=== PATIENT | female | born 1940 | race Caucasian/White ===

== ENCOUNTER 2020-11-27 06:25 | Day surgery (SDC) | payer MEDICARE, BC, OTHER, SELFPAY ==
[2020-11-21 08:46] VITALS: BMI 37.8
--- NOTE | 2020-11-22 14:46 | MHC.SHP ---
Pre-Procedural Eval Section A The patient is an INPATIENT: No The History & Physical has been completed within 30 days and I have reviewed it.: Yes Section B Chief Complaint: cataract Allergies: Allergies Allergy/AdvReac Type Severity Reaction Status Date / Time Latex, Natural Rubber Allergy Intermediate RASH Unverified 02/24/20 15:14 [LATEX, NATURAL RUBBER] Plan Diagnosis/Plan: Unchanged I have reviewed the history and physical and performed a pertinent physical examination on my patient. No changes have occurred unless specified.
--- NOTE | 2020-11-24 09:30 | HO.ANESPROP2 ---
Documented by User: Fanny Fountainney 11/24/20 09:31 HPI - Anesthesia Eval Consult details Narrative: 80yo F for Left Cataract Extraction IOL Insertion PCP cleared No prev cataract on record PMFSH Past Medical History Medical History (Updated 11/21/20 @ 08:51 by Sheela Stahl) Arthritis Cancer COVID-19 vaccine administered Depression HTN (hypertension) Hx of Crohn's disease Surgical History Surgical History (Updated 11/21/20 @ 08:51 by Sheela Stahl) H/O colonoscopy Hx of appendectomy Hx of hysterectomy Hx of lumbar discectomy Social History Social History (Updated 11/21/20 @ 08:52 by Sheela Stahl) Are you a primary ocular care technician to a significant other at home: No Do you presently have visiting nurse or other home services: No Patient Tobacco Use Status: Never used Tobacco Use of substances other than those prescribed or required for medical reasons: No Have you been hit, kicked, punched, or otherwise hurt by someone within the past year? If so, by whom?: No Are you DNR?: No Advance Directives Information Provided: No Advance Directives on File: No Recently lost weight without trying: No Eating poorly because of decreased appetite: No Nutrition Risks: Surgical patient >75years Poor oral hygiene: No Meds Allergies Allergy/AdvReac Type Severity Reaction Status Date / Time Latex, Natural Rubber Allergy Intermediate RASH Verified 11/27/20 07:01 [LATEX, NATURAL RUBBER] Home Medications Medication Instructions Recorded Confirmed Last Taken Type citalopram 10 mg PO DAILY 11/21/20 11/21/20 Unknown History hydrochlorothiazide 50 mg PO DAILY 11/21/20 11/21/20 Unknown History multivitamin 1 tab PO DAILY 11/21/20 11/21/20 Unknown History vit C,H-In-ybafl-lutein-zeaxan 1 tab PO BID 11/21/20 11/21/20 Unknown History [PreserVision AREDS-2] Exam Exam Date and Time: November 24, 2020 0930 Height,Weight and Vital Signs: Height 5 ft 1 in Weight 90.718 kg Assessment and Plan Assessment Anesthesia Assessment: Chart Reviewed Documented by User: Jordana Iglesias 11/27/20 07:49 PMFSH Past Medical History Medical History (Updated 11/21/20 @ 08:51 by Sheela Stahl) Arthritis Cancer COVID-19 vaccine administered Depression HTN (hypertension) Hx of Crohn's disease Surgical History Surgical History (Updated 11/21/20 @ 08:51 by Sheela Stahl) H/O colonoscopy Hx of appendectomy Hx of hysterectomy Hx of lumbar discectomy Social History Social History (Updated 11/21/20 @ 08:52 by Sheela Stahl) Are you a primary ocular care technician to a significant other at home: No Do you presently have visiting nurse or other home services: No Patient Tobacco Use Status: Never used Tobacco Use of substances other than those prescribed or required for medical reasons: No Have you been hit, kicked, punched, or otherwise hurt by someone within the past year? If so, by whom?: No Are you DNR?: No Advance Directives Information Provided: No Advance Directives on File: No Recently lost weight without trying: No Eating poorly because of decreased appetite: No Nutrition Risks: Surgical patient >75years Poor oral hygiene: No Meds Allergies Allergy/AdvReac Type Severity Reaction Status Date / Time Latex, Natural Rubber Allergy Intermediate RASH Verified 11/27/20 07:01 [LATEX, NATURAL RUBBER] Home Medications Medication Instructions Recorded Confirmed Last Taken Type citalopram 10 mg PO DAILY 11/21/20 11/21/20 Unknown History hydrochlorothiazide 50 mg PO DAILY 11/21/20 11/21/20 Unknown History multivitamin 1 tab PO DAILY 11/21/20 11/21/20 Unknown History vit C,M-Is-jqfpv-lutein-zeaxan 1 tab PO BID 11/21/20 11/21/20 Unknown History [PreserVision AREDS-2] Exam Airway Mallampati Class: II TM Dist: >3cm Neck ROM: Full Heart: rrr Lungs: cta Assessment and Plan Assessment Anesthesia Assessment: Anesthesia Plan Discussed and Chart Reviewed Final Anesthetic Review NPO: Yes ASA Class: II Final Preanesthetic Review: No Changes in Pt Med Stat and Consent Obtained/Reviewed Patient Risk: Intermediate Procedure Risk: Intermediate Anesthetic Plan Anesthetic Plan: MAC: Disposition: Standard PACU
[2020-11-27 06:41] VITALS: BP 132/64; PULSE 78; RESP 18; TEMP 36.9; O2SAT 95
[2020-11-27] MEDS: Tetracaine HCl/PF 0.5% Oph Sol 4 ML DROPS 1 DROP EYE-LEFT (06:50)
[2020-11-27] MEDS: Tropicamide 1 % Ophth Sol 3 ML BTL 1 DROP EYE-LEFT ×3 (06:55→07:07)
[2020-11-27] MEDS: Lactated Ringers 500 ML 50 ML IV (07:01)
[2020-11-27] MEDS: Phenylephrine HCL 2.5% Oph SoL 2 ML BOTTLE 1 DROP EYE-LEFT ×3 (07:03→07:08)
--- NOTE | 2020-11-27 08:52 | HO.PNOPHT ---
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 ANESTHESIA: Topical/MAC ESTIMATED BLOOD LOSS: None COMPLICATIONS: None After obtaining informed consent, the patient was brought to the operating room suite and placed in the supine position. After adequate sedation per anesthesia, topical drops of Tetracaine were given to the left eye. The eye was then prepped and draped in the usual sterile fashion. The operating room microscope was then positioned over the left eye and a lid speculum placed. 2% Lidocaine was instilled subconjunctivally. After awaiting 30 seconds, a paracentesis was created superiorly. Hemostasis was then achieved using wet field cautery. Mitomycin .4mg/ml was then placed in the conjunctival pocket and held in place for two minutes. The subconjunctival pocket was then irrigated copiously with 20 mls of BSS. Paracentesis was then created. Viscoelastic was then instilled into the anterior chamber. A crescent blade was then utilized to create a partial thickness sclera wound followed by advancement to clear cornea with the crescent blade. A keratome was then utilized to enter the anterior chamber. Capsulotomy forceps were then utilized to create a continuous circular tear capsulotomy. Hydrodissection and hydrodelineation were carried out until adequate mobilization of the nucleus occurred. Phacoemulsification was utilized to remove the dense central nucleus followed by removal of remnant cortical material utilizing the automated aspiration irrigation unit. Viscoelastic was then instilled into the posterior capsular bag followed by placement of a posterior chamber intraocular lens. Attention was then directed to create a trabeculectomy. A Candida punch was then utilized to create the trabeculectomy. The residual Viscoelastic was then removed utilizing the automated IA machine. The egress of aqueous was evaluated and found to be appropriate. The conjunctiva was then closed with a 9-0 vicryl suture. BSS was then instilled into the anterior chamber creating a superior bleb, without obvious leakage. Intracameral injection of Vigamox 0.3%, 0.1 ml and subtenon injection of Kenalog-40 0.2 ml was given followed by an atropine drop. The patient tolerated the procedure well and will be followed up in the a.m.
--- NOTE | 2020-11-27 08:52 | HO.PNOPHT ---
Ophthalmology Procedure Procedure Date of Service: 11/27/20 Ophthalmology Viscoelastic: Healon Duet Dual Pack Pro Ophthalmology Lenses: TECVALERIA [id number] (17) Procedure Notes: PREOPERATIVE DIAGNOSIS: Decreased visual acuity left eye secondary to cataract POSTOPERATIVE DIAGNOSIS: Same PROCEDURE: Left cataract extraction with intraocular lens insertion SURGEON: Wing Laguerre M.D. ANESTHESIA: Topical/MAC ESTIMATED BLOOD LOSS: None COMPLICATIONS: None After obtaining informed consent, the patient was brought to the operation room suite and placed in the supine position. After adequate sedation per anesthesia, topical drops of Tetracaine were given to the left eye. The eye was then prepped and draped in the usual sterile fashion. The operating room microscope was then positioned over the operative eye and a lid speculum placed. A paracentesis was created. Viscoelastic was then instilled into the anterior chamber. A three plane incision was then created temporally, utilizing a 2.85 mm keratome. Capsulotomy forceps were then utilized to create a circular tear capsulotomy. Hydrodissection and hydrodelineation were carried out until adequate mobilization of the nucleus occurred. Phacoemulsification was then utilized to remove the dense central nucleus followed by removal of the cortical material utilizing the automated aspiration irrigation unit. Viscoat elastic was instilled into the posterior capsular bag followed by placement of a posterior chamber intraocular lens without difficulty. The residual Viscoat elastic was then removed utilizing the automated IA machine. The wound was check and found to be watertight. The patient tolerated the procedure well and the lid speculum was removed. Intracameral injection of Vigamox 0.1 mL followed by a subtenon injection of Kenalog-40 0.2 mL were administered. The patient will be seen in the a.m.
[2020-11-27 09:27] VITALS: BP 146/67; PULSE 77; RESP 17; TEMP 36.6; O2SAT 97
== END 2020-11-27 09:50 ==
LOC: HO.SSS 06:26
PROVIDERS: PCP Family Medicine; Visit Provider Ophthalmology
PROC: (CPT 66985; principal; 2020-11-27 08:50)
DX: H25.12 Age-related nuclear cataract, left eye (principal); H35.3131 Nonexudative age-related macular degeneration, bilateral, early dry stage; Z83.511 Family history of glaucoma; I10 Essential (primary) hypertension; Z85.820 Personal history of malignant melanoma of skin; F32.9 Major depressive disorder, single episode, unspecified; Z79.899 Other long term (current) drug therapy; Z87.891 Personal history of nicotine dependence
CPT/HCPCS: 66984; J2250; J3010; J3300; V2632

== ENCOUNTER 2020-12-18 06:57 | Day surgery (SDC) | payer MEDICARE, OTHER, BC, SELFPAY ==
[2020-11-21 08:55] VITALS: BMI 37.8
--- NOTE | 2020-12-14 07:36 | MHC.SHP ---
Pre-Procedural Eval Section A Date of Service: 12/14/20 The patient is an INPATIENT: No The History & Physical has been completed within 30 days and I have reviewed it.: Yes Section B Chief Complaint: cataract Allergies: Allergies Allergy/AdvReac Type Severity Reaction Status Date / Time Latex, Natural Rubber Allergy Intermediate RASH Verified 11/27/20 07:01 [LATEX, NATURAL RUBBER] Plan Diagnosis/Plan: Unchanged I have reviewed the history and physical and performed a pertinent physical examination on my patient. No changes have occurred unless specified.
--- NOTE | 2020-12-15 09:46 | P.CONAN_ITS ---
Documented by User: Fanny Mathur 12/15/20 09:46 HPI - Anesthesia Eval Consult details Narrative: 80yo F for Right Cataract Extraction IOL Insertion PCP cleared Left eye 11/27: Fent 50, Midaz 1 PMFSH Past Medical History Medical History Arthritis Cancer COVID-19 vaccine administered Depression HTN (hypertension) Hx of Crohn's disease Surgical History Surgical History H/O colonoscopy Hx of appendectomy Hx of hysterectomy Hx of lumbar discectomy Social History Social History Are you a primary career technical education instructor to a significant other at home: No Do you presently have visiting nurse or other home services: No Patient Tobacco Use Status: Never used Tobacco Use of substances other than those prescribed or required for medical reasons: No Have you been hit, kicked, punched, or otherwise hurt by someone within the past year? If so, by whom?: No Are you DNR?: No Advance Directives Information Provided: No Advance Directives on File: No Recently lost weight without trying: No Eating poorly because of decreased appetite: No Nutrition Risks: Surgical patient >75years Poor oral hygiene: No Meds Allergies Allergy/AdvReac Type Severity Reaction Status Date / Time Latex, Natural Rubber Allergy Intermediate RASH Verified 11/27/20 07:01 [LATEX, NATURAL RUBBER] Home Medications Medication Instructions Recorded Confirmed Last Taken Type citalopram 10 mg PO DAILY 11/21/20 11/21/20 Unknown History hydrochlorothiazide 50 mg PO DAILY 11/21/20 11/21/20 Unknown History multivitamin 1 tab PO DAILY 11/21/20 11/21/20 Unknown History vit C,U-Pv-egaqe-lutein-zeaxan 1 tab PO BID 11/21/20 11/21/20 Unknown History [PreserVision AREDS-2] Exam Exam Date and Time: December 15, 2020 0946 Height,Weight and Vital Signs: Height 5 ft 1 in Weight 90.718 kg Assessment and Plan Assessment Anesthesia Assessment: Chart Reviewed Documented by User: Cuba Reyes 12/18/20 08:39 PMFSH Past Medical History Medical History Arthritis Cancer COVID-19 vaccine administered Depression HTN (hypertension) Hx of Crohn's disease Surgical History Surgical History H/O colonoscopy Hx of appendectomy Hx of hysterectomy Hx of lumbar discectomy Social History Social History Are you a primary career technical education instructor to a significant other at home: No Do you presently have visiting nurse or other home services: No Patient Tobacco Use Status: Never used Tobacco Use of substances other than those prescribed or required for medical reasons: No Have you been hit, kicked, punched, or otherwise hurt by someone within the past year? If so, by whom?: No Are you DNR?: No Advance Directives Information Provided: No Advance Directives on File: No Recently lost weight without trying: No Eating poorly because of decreased appetite: No Nutrition Risks: Surgical patient >75years Poor oral hygiene: No Meds Allergies Allergy/AdvReac Type Severity Reaction Status Date / Time Latex, Natural Rubber Allergy Intermediate RASH Verified 11/27/20 07:01 [LATEX, NATURAL RUBBER] Home Medications Medication Instructions Recorded Confirmed Last Taken Type citalopram 10 mg PO DAILY 11/21/20 11/21/20 Unknown History hydrochlorothiazide 50 mg PO DAILY 11/21/20 11/21/20 Unknown History multivitamin 1 tab PO DAILY 11/21/20 11/21/20 Unknown History vit C,M-Cu-hebbp-lutein-zeaxan 1 tab PO BID 11/21/20 11/21/20 Unknown History [PreserVision AREDS-2] Exam Airway Mallampati Class: III TM Dist: >3cm Neck ROM: Full Loose/Missing/Broken Teeth: No Heart: rrr+[id number] Lungs: cta b/l Assessment and Plan Assessment Anesthesia Assessment: Anesthesia Plan Discussed, PAT Visit and Chart Reviewed Final Anesthetic Review NPO: Yes ASA Class: III Final Preanesthetic Review: No Changes in Pt Med Stat, Meds/Allgs Chart Reviewed, Consent Obtained/Reviewed and Anes Risks/Benef Reviewed Patient Risk: Intermediate Procedure Risk: Low Assessment/Block/Sedation in SS: Assess/Block/Sedation-SS Anesthetic Plan Anesthetic Plan: MAC: and Agree w/ Assess. and Plan Disposition: Standard PACU
[2020-12-18 07:52] VITALS: BP 189/76; PULSE 78; RESP 18; TEMP 36.2; O2SAT 95
[2020-12-18] MEDS: Tetracaine HCl/PF 0.5% Oph Sol 4 ML DROPS 1 DROP EYE-RIGHT (08:08)
[2020-12-18] MEDS: Tropicamide 1 % Ophth Sol 3 ML BTL 1 DROP EYE-RIGHT ×3 (08:11→08:26)
[2020-12-18] MEDS: Phenylephrine HCL 2.5% Oph SoL 2 ML BOTTLE 1 DROP EYE-RIGHT ×3 (08:17→08:31)
[2020-12-18] MEDS: Lactated Ringers 500 ML 50 ML IV (08:23)
--- NOTE | 2020-12-18 09:17 | HO.PNOPHT ---
Ophthalmology Procedure Procedure Date of Service: 12/18/20 Ophthalmology Viscoelastic: Healon Duet Dual Pack Pro Ophthalmology Lenses: TECNIS [id number] (15.5) Procedure Notes: PREOPERATIVE DIAGNOSIS: Decreased visual acuity right eye secondary to cataract POSTOPERATIVE DIAGNOSIS: Same PROCEDURE: Right cataract extraction with intraocular lens insertion SURGEON: Wing Laguerre M.D. ANESTHESIA: Topical/MAC ESTIMATED BLOOD LOSS: None COMPLICATIONS: None After obtaining informed consent, the patient was brought to the operating room suite and placed in the supine position. After adequate sedation per anesthesia, topical drops of Tetracaine were given to the right eye. The eye was then prepped and draped in the usual sterile fashion. The operating room microscope was then positioned over the operative eye and a lid speculum placed. A paracentesis was created. Viscoelastic was then instilled into the anterior chamber. A three plane incision was then created temporally, utilizing a 2.85 mm keratome. Capsulotomy forceps were then utilized to create a circular tear capsulotomy. Hydrodissection and hydrodelineation were carried out until adequate mobilization of the nucleus occurred. Phacoemulsification was then utilized to remove the dense central nucleus followed by removal of the cortical material utilizing the automated aspiration irrigation unit. Viscoelastic was instilled into the posterior capsular bag followed by placement of a posterior chamber intraocular lens without difficulty. The residual Viscoelastic was then removed utilizing the automated IA machine. The wound was checked and found to be watertight. The patient tolerated the procedure well and the lid speculum was removed. Intracameral injection of Vigamox 0.1 mL followed by a subtenon injection of Kenalog-40 0.2 mL were administered. The patient will be seen in the a.m.
[2020-12-18 09:38] VITALS: BP 173/76; PULSE 69; RESP 16; TEMP 36.1; O2SAT 97
== END 2020-12-18 09:44 | disposition home or self-care (01) ==
PROVIDERS: PCP Family Medicine; Visit Provider Ophthalmology
PROC: (CPT 66985; principal; 2020-12-18 09:10)
DX: H25.11 Age-related nuclear cataract, right eye (principal); H35.3131 Nonexudative age-related macular degeneration, bilateral, early dry stage; Z83.511 Family history of glaucoma; I10 Essential (primary) hypertension; Z85.820 Personal history of malignant melanoma of skin; F32.9 Major depressive disorder, single episode, unspecified; Z79.899 Other long term (current) drug therapy; Z91.040 Latex allergy status
CPT/HCPCS: 66984; J3010; J3300; V2632